=== PATIENT | female | born 1995 | race Caucasian/White ===

== ENCOUNTER 2021-01-19 12:30 | Inpatient (IN) | payer OTHER ==
[~2021-01-19 12:30] MED LIST: IBUPROFEN800 M1 PO; MELATONIN10 M2 PO; OMEPRAZOLE40 MG PO; ZOLOFT100 MG PO
[2021-01-19 13:33] LABS: HCT 36.1 % (37.0-47.0); HGB 12.3 g/dl (12.5-16.0); MCH 32.7 pg (25.0-31.0); MCHC 34.1 g/dL (32.0-36.0); MPV 10.2 fL (6.0-9.5); RBC 3.76 M/uL (4.20-5.40); RDW 12.2 % (11.5-14.0); WBC 11.9 K/uL (4.0-10.5)
[2021-01-19 13:37] LABS: BILIRUBIN NEGATIVE (NEGATIVE); BLOOD NEGATIVE Ery/uL (NEGATIVE); CLARITY CLEAR (CLEAR); COLOR YELLOW (YELLOW); GLUCOSE (U) NORMAL (NORMAL); LEUKOCYTES TRACE Leu/uL (NEGATIVE); NITRITE NEGATIVE (NEGATIVE); PROTEIN NEGATIVE (NEGATIVE); SPECIFIC GRAVITY 1.015 (1.001-1.030); UROBILINOGEN 0.2 mg/dL (0.2-1.0); pH 7.5 (5.0-9.0)
[2021-01-19 13:51] LABS: BACTERIA TRACE; URINARY WBC RARE
[2021-01-19 13:57] LABS: PROTEIN:CREATININE 0.28 RATIO; URINE CREATININE 62.67 mg/dL (29.00-226.00); URINE TOTAL PROTEIN-RANDOM 18.1 mg/dL (<11.9)
[2021-01-19 14:02] LABS: ALBUMIN 2.5 g/dL (3.4-5.0); BILIRUBIN - TOTAL 0.1 mg/dL (0.2-1.0); BUN/CREAT RATIO (CALC) 13.8 RATIO; CREATININE 0.65 mg/dL (0.51-0.95); GLOBULIN (CALCULATION) 4.4 g/dL; POTASSIUM 3.8 mmol/L (3.5-5.1); TOTAL PROTEIN 6.9 g/dL (6.4-8.2); URIC ACID 3.7 mg/dL (2.6-6.2)
[2021-01-20] MEDS ORDERED: PRENATAL FORMU1 EACH PO ×2 (08:09→18:53)
[2021-01-20] MEDS ORDERED: ASPIRIN EC81 MG PO (08:09)
[2021-01-20 08:12] LABS: HCT 31.5 % (37.0-47.0); HGB 10.7 g/dl (12.5-16.0); MCH 33.3 pg (25.0-31.0); MCV 98.1 fL (78.0-100.0); MPV 9.7 fL (6.0-9.5); RBC 3.21 M/uL (4.20-5.40); RDW 12.3 % (11.5-14.0); WBC 17.6 K/uL (4.0-10.5)
[2021-01-20] MEDS ORDERED: TRANDATE100 MG PO (18:53)
[2021-01-20] MEDS ORDERED: FEROSUL325 MG PO (18:53)
[2021-01-20] MEDS ORDERED: KETOROLAC TROME10 MG PO (18:53)
== END 2021-01-20 20:00 | disposition home or self-care (01) | DRG 787 ==
LOC: FOB 12:30 → FOD 12:30 → FOB 12:34 → FOD 16:04 → FOB 16:04
PROVIDERS: Obstetrics & Gynecology; ADMIT Specialist
PROC: 10D00Z1 Extraction of Products of Conception, Low, Open Approach (ICD-10-PCS; principal; 2021-01-19 16:00)
DX: O76 Abnormality in fetal heart rate and rhythm complicating labor and delivery (principal); O41.03X0 Oligohydramnios, third trimester, not applicable or unspecified; O10.92 Unspecified pre-existing hypertension complicating childbirth; O36.5930 Maternal care for other known or suspected poor fetal growth, third trimester, not applicable or unspecified; Z37.0 Single live birth; Z20.822 Contact with and (suspected) exposure to COVID-19; O34.211 Maternal care for low transverse scar from previous cesarean delivery; O99.214 Obesity complicating childbirth; E66.01 Morbid (severe) obesity due to excess calories; F17.210 Nicotine dependence, cigarettes, uncomplicated; O99.334 Smoking (tobacco) complicating childbirth; Z88.5 Allergy status to narcotic agent; Z3A.35 35 weeks gestation of pregnancy
CPT/HCPCS: 36415; 80053; 81001; 82570; 83615; 84112; 84156; 84550; 86850; 86900; 86901; 90744; J0456; J0690; J0702; J1200; J1885; J2274; J2405; J3010; J3475; J3490; J7050; J7120; U0002